=== PATIENT | female | born 1945 | race Asian ===

== ENCOUNTER 2017-05-27 10:31 | Inpatient (IN) | END 2017-06-21 17:15 | disposition home health service (06) | DRG 689 ==

== ENCOUNTER 2017-07-11 16:23 | Inpatient (IN) | END 2017-07-14 18:00 | disposition home or self-care (01) | DRG 300 ==

== ENCOUNTER 2017-09-15 16:10 | Inpatient (IN) | END 2017-09-16 19:13 | disposition EXP | DRG 414 ==